=== PATIENT | female | born 1935 | race Caucasian/White ===

== ENCOUNTER 2018-10-31 10:02 | Inpatient (IN) ==
[2018-10-31] MEDS ORDERED: ACETAMINOPHEN 325 MG TABLET PO PRN (15:02)
[2018-10-31] MEDS ORDERED: GLUCAGON 1 MG VIAL IM PRN (15:02)
[2018-10-31] MEDS ORDERED: DEXTROSE 50% 25 GM/50 ML VIAL IV PRN (15:02)
[2018-10-31] MEDS ORDERED: ONDANSETRON 4 MG/2 ML VIAL IV PRN (15:02)
[2018-10-31] MEDS: SODIUM CHLORIDE 0.9% 1,000 ML IV SCH (15:28)
[2018-10-31 15:45] LABS: Basophils % 0.3 % (0.0-0.8); Eosinophils # 0.1 10*3/uL (0.0-0.87); Eosinophils % 3.6 % (0.00-10.9); Hematocrit 36.6 VOL% (35.7-47.0); Hemoglobin 11.3 GM/DL (12.0-16.0); Immature Granulocytes % 6.8 %; Immature Granulocytes Absolute 0.21 #; Lymphocytes # 1.3 10*3/uL (1.4-4.0); Lymphocytes % 43.6 % (21.3-54.2); Mean Corpuscular HGB Conc 30.9 GM/DL (32-36); Mean Corpuscular Volume 98.1 FL (87-102); Mean Platelet Volume 9.8 FL (9.6-12.0); Monocytes % 8.1 % (1.7-12.7); Neutrophils % 37.6 % (38.7-73.9); Platelet Count 175 T/CUMM (130-400); Red Blood Count 3.73 MC/CUMM (3.8-5.5); Red Cell Distribution Width 13.1 % (9.3-17.3); White Blood Count 3.1 T/CUMM (4-12)
[2018-10-31] MEDS ORDERED: CYCLOBENZAPRINE 10 MG TABLET PO PRN (15:53)
[2018-10-31 16:12] LABS: Albumin 3.6 G/DL (3.4-5.0); Bilirubin,Total 0.4 MG/DL (0.2-1.0); Calcium 9.1 MG/DL (8.5-10.1); Osmolality,Calculated 285.7 MOS/KG (273-304)
[2018-10-31] MEDS ORDERED: POTASSIUM CHLORIDE 20 MEQ TABLET PO PRN (16:14)
[2018-10-31 16:17] LABS: Risk Ratio 1.45; Thyroid Stimulating Hormone 3.48 uIU/ml (0.358-3.74); VLDL CHOLESTEROL 7.8 MG/DL
[2018-10-31 16:25] LABS: Eosinophils 1 % (0-10); Lymphocytes 47 % (20-55); Segmented Neutrophils 39 % (50-85); Total Cells Counted 100
[2018-10-31 16:26] LABS: Platelet Estimate Adequate
[2018-10-31] MEDS: INSULIN LISPRO 100 UNIT/ML SUBCUT SCH ×2 (16:38→22:43)
[2018-10-31 17:52] LABS: Apearance,Urine CLOUDY (Clear); Bacteria,Urine Moderate /HPF (Few); Bilirubin,Urine Negative (Negative); Blood, Urine Negative (Negative); Glucose,Urine (UA) Negative (Negative); Ketones,Urine Negative (Negative); Nitrite,Urine Negative (Negative); Protein,Urine Negative; RBC,Urine 6 /HPF (0-4); Squamous Epithelial Cell,Urine Occasional /HPF (0-10); Urine Color Amber (Yellow); Urine Specific Gravity 1.019 (1.001-1.035); Urine Urobilinogen < 2.0 EU/DL (0.2-1.0); WBC,Urine 44 /HPF (0-6)
[2018-10-31] MEDS: PANTOPRAZOLE 40 MG TABLET PO SCH (20:44)
[2018-10-31] MEDS: SIMVASTATIN 40 MG TABLET PO SCH (20:44)
[2018-10-31] MEDS: CLORAZEPATE 3.75 MG TABLET PO SCH (22:44)
[2018-10-31] MEDS: metFORMIN 500 MG TABLET PO SCH (22:44)
[2018-11-01] MEDS: SODIUM CHLORIDE 0.9% 1,000 ML IV SCH ×4 (00:21→23:22)
[2018-11-01 05:18] LABS: Basophils % 0.4 % (0.0-0.8); Eosinophils # 0.1 10*3/uL (0.0-0.87); Eosinophils % 4.7 % (0.00-10.9); Hematocrit 33.4 VOL% (35.7-47.0); Hemoglobin 10.7 GM/DL (12.0-16.0); Immature Granulocytes % 8.1 %; Immature Granulocytes Absolute 0.19 #; Lymphocytes # 1.2 10*3/uL (1.4-4.0); Lymphocytes % 50.4 % (21.3-54.2); Mean Platelet Volume 10.2 FL (9.6-12.0); Monocytes % 11.9 % (1.7-12.7); Neutrophils % 24.5 % (38.7-73.9); Platelet Count 153 T/CUMM (130-400); Red Blood Count 3.48 MC/CUMM (3.8-5.5); Red Cell Distribution Width 13.1 % (9.3-17.3); White Blood Count 2.4 T/CUMM (4-12)
[2018-11-01 05:41] LABS: Eosinophils 6 % (0-10); Hypochromasia 1+; Lymphocytes 47 % (20-55); Platelet Estimate Adequate; Segmented Neutrophils 38 % (50-85); Total Cells Counted 100
[2018-11-01 05:45] LABS: Albumin 2.9 G/DL (3.4-5.0); Bilirubin,Total 0.5 MG/DL (0.2-1.0); Calcium 8.6 MG/DL (8.5-10.1); Osmolality,Calculated 285.3 MOS/KG (273-304)
[2018-11-01] MEDS: INSULIN LISPRO 100 UNIT/ML SUBCUT SCH ×4 (08:10→21:39)
[2018-11-01] MEDS: MAGNESIUM GLUCONATE 500 MG TABLET PO SCH (08:35)
[2018-11-01] MEDS: metFORMIN 500 MG TABLET PO SCH ×2 (08:35→21:39)
[2018-11-01] MEDS: ATENOLOL 25 MG TABLET PO SCH (08:35)
[2018-11-01] MEDS: PARoxetine 20 MG TABLET PO SCH (08:36)
[2018-11-01] MEDS: MAGNESIUM CITRATE 300 ML BOTTLE PO SCH (08:36)
[2018-11-01] MEDS: LEVOTHYROXINE 75 MCG TABLET PO SCH (08:36)
[2018-11-01] MEDS: PANTOPRAZOLE 40 MG TABLET PO SCH ×2 (08:36→21:41)
[2018-11-01] MEDS: SIMVASTATIN 40 MG TABLET PO SCH (21:40)
[2018-11-01] MEDS: CLORAZEPATE 3.75 MG TABLET PO SCH (21:41)
[2018-11-02 05:46] LABS: Basophils % 0.4 % (0.0-0.8); Eosinophils # 0.1 10*3/uL (0.0-0.87); Hematocrit 35.7 VOL% (35.7-47.0); Hemoglobin 11.1 GM/DL (12.0-16.0); Immature Granulocytes % 2.4 %; Immature Granulocytes Absolute 0.06 #; Lymphocytes # 1.1 10*3/uL (1.4-4.0); Mean Corpuscular HGB Conc 31.1 GM/DL (32-36); Mean Corpuscular Volume 96.7 FL (87-102); Mean Platelet Volume 9.8 FL (9.6-12.0); Neutrophils % 38.2 % (38.7-73.9); Platelet Count 156 T/CUMM (130-400); Red Blood Count 3.69 MC/CUMM (3.8-5.5); White Blood Count 2.5 T/CUMM (4-12)
[2018-11-02 06:02] LABS: Albumin 3.5 G/DL (3.4-5.0); Bilirubin,Total 0.8 MG/DL (0.2-1.0); Calcium 8.5 MG/DL (8.5-10.1); Osmolality,Calculated 283.5 MOS/KG (273-304); Total Protein 6.8 G/DL (6.4-8.3)
[2018-11-02 06:10] LABS: Eosinophils 5 % (0-10); Hypochromasia 1+; Lymphocytes 43 % (20-55); Platelet Estimate Adequate; Segmented Neutrophils 43 % (50-85); Total Cells Counted 100
[2018-11-02] MEDS: INSULIN LISPRO 100 UNIT/ML SUBCUT SCH ×4 (07:30→21:34)
[2018-11-02] MEDS ORDERED: LACTATED RINGERS 1,000 ML IV SCH (08:00)
[2018-11-02] MEDS ORDERED: PROPOFOL 200 MG/20 ML VIAL IV ONE (09:00)
[2018-11-02] MEDS ORDERED: LIDOCAINE 2% 5 ML VIAL ONE (09:00)
[2018-11-02] MEDS ORDERED: DEXTROSE 50% 25 GM/50 ML VIAL IV PRN (13:16)
[2018-11-02] MEDS ORDERED: GLUCAGON 1 MG VIAL IM PRN (13:16)
[2018-11-02] MEDS: SODIUM CHLORIDE 0.9% 1,000 ML IV SCH ×2 (14:35→16:55)
[2018-11-02] MEDS: ATENOLOL 25 MG TABLET PO SCH (14:36)
[2018-11-02] MEDS: metFORMIN 500 MG TABLET PO SCH ×2 (14:36→21:34)
[2018-11-02] MEDS: AMOXICILLIN 500 MG CAPSULE PO SCH ×3 (14:36→21:34)
[2018-11-02] MEDS: MAGNESIUM CITRATE 300 ML BOTTLE PO SCH (14:36)
[2018-11-02] MEDS: PANTOPRAZOLE 40 MG TABLET PO SCH ×2 (14:37→21:34)
[2018-11-02] MEDS: PARoxetine 20 MG TABLET PO SCH (14:37)
[2018-11-02] MEDS: LEVOTHYROXINE 75 MCG TABLET PO SCH (14:41)
[2018-11-02] MEDS: MAGNESIUM GLUCONATE 500 MG TABLET PO SCH (14:41)
[2018-11-02] MEDS ORDERED: ENOXAPARIN 40 MG/0.4 ML SYRINGE SUBCUT ONE (16:19)
[2018-11-02] MEDS: SIMVASTATIN 40 MG TABLET PO SCH (21:34)
[2018-11-02] MEDS: CLORAZEPATE 3.75 MG TABLET PO SCH (21:34)
[2018-11-03] MEDS: SODIUM CHLORIDE 0.9% 1,000 ML IV SCH (01:10)
[2018-11-03 05:55] LABS: Basophils % 0.4 % (0.0-0.8); Eosinophils # 0.1 10*3/uL (0.0-0.87); Eosinophils % 4.6 % (0.00-10.9); Hematocrit 40.4 VOL% (35.7-47.0); Hemoglobin 12.7 GM/DL (12.0-16.0); Immature Granulocytes % 7.1 %; Lymphocytes # 1.4 10*3/uL (1.4-4.0); Lymphocytes % 48.9 % (21.3-54.2); Mean Corpuscular HGB Conc 31.4 GM/DL (32-36); Mean Platelet Volume 10.3 FL (9.6-12.0); Monocytes % 12.5 % (1.7-12.7); Neutrophils % 26.5 % (38.7-73.9); Platelet Count 180 T/CUMM (130-400); Red Blood Count 4.21 MC/CUMM (3.8-5.5); White Blood Count 2.8 T/CUMM (4-12)
[2018-11-03 06:18] LABS: Eosinophils 1 % (0-10); Hypochromasia 1+; Lymphocytes 56 % (20-55); Platelet Estimate Adequate; Segmented Neutrophils 36 % (50-85); Total Cells Counted 100
[2018-11-03 06:57] LABS: Albumin 3.9 G/DL (3.4-5.0); Bilirubin,Total 0.5 MG/DL (0.2-1.0); Osmolality,Calculated 283.4 MOS/KG (273-304); Total Protein 7.8 G/DL (6.4-8.3)
[2018-11-03 08:00] VITALS: BP 122/69
[2018-11-03] MEDS: PANTOPRAZOLE 40 MG TABLET PO SCH (08:49)
[2018-11-03] MEDS: LEVOTHYROXINE 75 MCG TABLET PO SCH (08:49)
[2018-11-03] MEDS: MAGNESIUM GLUCONATE 500 MG TABLET PO SCH (08:50)
[2018-11-03] MEDS: AMOXICILLIN 500 MG CAPSULE PO SCH (08:50)
[2018-11-03] MEDS: INSULIN LISPRO 100 UNIT/ML SUBCUT SCH (08:51)
[2018-11-03] MEDS: ATENOLOL 25 MG TABLET PO SCH (08:51)
[2018-11-03] MEDS: metFORMIN 500 MG TABLET PO SCH (08:51)
[2018-11-03] MEDS: PARoxetine 20 MG TABLET PO SCH (08:51)
[2018-11-03] MEDS: MAGNESIUM CITRATE 300 ML BOTTLE PO SCH (08:52)
== END 2018-11-03 11:53 | disposition home or self-care (01) | DRG 392 ==
LOC: N.5E 13:02 → SUATTDRO 13:02
PROVIDERS: ADMIT Internal Medicine; ATTEND Internal Medicine

== ENCOUNTER 2020-10-26 20:33 | Observation (INO) ==
[2020-10-26] MEDS ORDERED: ONDANSETRON 4 MG/2 ML VIAL IV STA (21:54)
[2020-10-26] MEDS ORDERED: PANTOPRAZOLE 40 MG VIAL IV STA (21:54)
[2020-10-26] MEDS ORDERED: SODIUM CHLORIDE 0.9% 500 ML IV STA (21:54)
[2020-10-26 22:38] LABS: Eosinophils % 0.7 % (0.00-10.9); Hematocrit 37.1 VOL% (35.7-47.0); Hemoglobin 12.1 GM/DL (12.0-16.0); Immature Granulocytes % 6.6 %; Immature Granulocytes Absolute 0.28 #; Lymphocytes % 22.4 % (21.3-54.2); Mean Corpuscular HGB Conc 32.6 GM/DL (32-36); Mean Corpuscular Volume 94.4 FL (87-102); Mean Platelet Volume 10.7 FL (9.6-12.0); Monocytes % 8.5 % (1.7-12.7); Neutrophils % 61.8 % (38.7-73.9); Platelet Count 150 T/CUMM (130-400); Red Blood Count 3.93 MC/CUMM (3.8-5.5); White Blood Count 4.3 T/CUMM (4-12)
[2020-10-26 23:03] LABS: Albumin 3.8 G/DL (3.4-5.0); Bilirubin,Total 0.6 MG/DL (0.2-1.0); Calcium 8.8 MG/DL (8.5-10.1); Osmolality,Calculated 286.1 MOS/KG (273-304); Potassium 4.4 MMOL/L (3.5-5.1); Total Protein 7.5 G/DL (6.4-8.2)
[2020-10-26 23:11] LABS: Eosinophils 1 % (0-10); Lymphocytes 19 % (20-55); Segmented Neutrophils 74 % (50-85); Total Cells Counted 100
[2020-10-26 23:12] LABS: Anisocytosis Slight; Microcytosis 1+; Platelet Estimate Normal
[2020-10-26 23:13] LABS: Hypochromasia 1+
[2020-10-26 23:14] LABS: Polychromasia Slight; Spherocytes Few
[2020-10-26 23:17] LABS: Bacteria,Urine Occasional /HPF (Few); Bilirubin,Urine Negative (Negative); Blood, Urine Negative (Negative); Glucose,Urine (UA) >=500 mg/dL (Negative); Ketones,Urine Negative (Negative); Nitrite,Urine Negative (Negative); Protein,Urine Negative; RBC,Urine 2 /HPF (0-4); Squamous Epithelial Cell,Urine Occasional /HPF (0-10); Urine Appearance CLEAR (Clear); Urine Color Colorless (Yellow); Urine Specific Gravity 1.008 (1.001-1.035); Urine Urobilinogen < 2.0 EU/DL (0.2-1.0)
[2020-10-26] MEDS ORDERED: INSULIN REGULAR 100 UNIT/ML SUBCUT STA (23:49)
[2020-10-26] MEDS ORDERED: MEROPENEM 500 MG in SODIUM CHLORIDE 0.9% 100 ML IV ONE (23:49)
[2020-10-27] MEDS ORDERED: diphenhydrAMINE CAP 25 MG CAPSULE PO PRN (01:58)
[2020-10-27] MEDS ORDERED: DEXTROSE 50% 25 GM/50 ML VIAL IV PRN (01:58)
[2020-10-27] MEDS ORDERED: ONDANSETRON 4 MG/2 ML VIAL IV PRN (01:58)
[2020-10-27] MEDS ORDERED: ALUMINUM/MAGNES/SIMETH MAX STR 30 ML UDCUP PO PRN (01:58)
[2020-10-27] MEDS ORDERED: ACETAMINOPHEN 325 MG TABLET PO PRN (01:58)
[2020-10-27] MEDS ORDERED: GLUCAGON 1 MG VIAL IM PRN (01:58)
[2020-10-27] MEDS ORDERED: SODIUM CHLORIDE 0.9% 1,000 ML IV SCH (02:00)
[2020-10-27 04:53] LABS: Calcium 8.9 MG/DL (8.5-10.1); Potassium 3.4 MMOL/L (3.5-5.1)
[2020-10-27] MEDS: INSULIN REGULAR 100 UNIT/ML SUBCUT SCH ×2 (08:00→12:15)
[2020-10-27] MEDS ORDERED: MEROPENEM 500 MG in SODIUM CHLORIDE 0.9% 100 ML IV SCH (08:00)
[2020-10-27] MEDS ORDERED: PANTOPRAZOLE 40 MG VIAL IV SCH (09:00)
[2020-10-27] MEDS ORDERED: POTASSIUM CHLORIDE 20 MEQ TABLET PO ONE (09:19)
[2020-10-27] MEDS ORDERED: cefTRIAXone 1,000 MG in SODIUM CHLORIDE 0.9% 100 ML IV SCH (09:30)
[2020-10-27] MEDS ORDERED: traMADol 50 MG TABLET PO PRN (10:05)
[2020-10-27] MEDS ORDERED: CLORAZEPATE 3.75 MG TABLET PO SCH (10:30)
[2020-10-27] MEDS ORDERED: LEVOTHYROXINE 100 MCG TABLET PO SCH (10:30)
[2020-10-27] MEDS ORDERED: atenoloL 25 MG TABLET PO SCH (10:30)
[2020-10-27] MEDS ORDERED: ASPIRIN EC 81 MG TABLET PO SCH (10:30)
[2020-10-27 18:36] VITALS: BP 128/58
[2020-10-27] MEDS ORDERED: CYCLOBENZAPRINE 10 MG TABLET PO SCH (21:00)
[2020-10-27] MEDS ORDERED: NON-FORMULARY MEDICATION (Magnesium 250 mg Tablet) PO SCH (21:00)
[2020-10-27] MEDS ORDERED: SIMVASTATIN 10 MG TABLET PO SCH (21:00)
[2020-10-28] MEDS ORDERED: PARoxetine 20 MG TABLET PO SCH (09:00)
[2020-10-28] MEDS ORDERED: NIFEDIPINE 30 MG PO SCH (09:00)
[2020-10-28] MEDS ORDERED: PANTOPRAZOLE 40 MG TABLET PO SCH (09:00)
== END 2020-10-27 16:15 | disposition home or self-care (01) ==
LOC: EDBD → EDUNIT# → N.EDINP 20:33 → N.ED 20:33 → N.EDINP 10-27 16:24
PROVIDERS: ADMIT Internal Medicine; ATTEND Internal Medicine

== ENCOUNTER 2021-12-09 10:58 | Inpatient (IN) ==
[2021-12-09] MEDS ORDERED: SODIUM CHLORIDE 0.9% 1,000 ML IV STA (11:31)
[2021-12-09 11:37] LABS: Basophils % 0.2 % (0.0-0.8); Eosinophils % 0.2 % (0.00-10.9); Hematocrit 37.6 VOL% (35.7-47.0); Hemoglobin 12.7 GM/DL (12.0-16.0); Immature Granulocytes % 2.4 %; Immature Granulocytes Absolute 0.31 #; Lymphocytes # 1.3 10*3/uL (1.4-4.0); Lymphocytes % 10.1 % (21.3-54.2); Mean Corpuscular HGB Conc 33.8 GM/DL (32-36); Mean Corpuscular Volume 92.2 FL (87-102); Mean Platelet Volume 10.3 FL (9.6-12.0); Monocytes # 1.3 10*3/uL (0.11-0.8); Monocytes % 9.9 % (1.7-12.7); Neutrophils % 77.2 % (38.7-73.9); Platelet Count 285 T/CUMM (130-400); Red Blood Count 4.08 MC/CUMM (3.8-5.5); Red Cell Distribution Width 13.2 % (9.3-17.3); White Blood Count 13.1 T/CUMM (4-12)
[2021-12-09 11:54] LABS: Albumin 3.5 G/DL (3.4-5.0); Bilirubin,Total 0.6 MG/DL (0.20-1.00); Calcium 9.3 MG/DL (8.5-10.1); Osmolality,Calculated 284.5 MOS/KG (273-304); Potassium 4.7 MMOL/L (3.5-5.1); Total Protein 7.2 G/DL (6.4-8.2)
[2021-12-09 13:13] LABS: Bacteria,Urine Few /HPF (Few); RBC,Urine 24 /HPF (0-4)
[2021-12-09 13:14] LABS: Protein,Urine 100 mg/dL (Negative); Urine Appearance Cloudy (Clear); Urine Color Light Yellow (Yellow)
[2021-12-09 13:15] LABS: Bilirubin,Urine Negative (Negative); Blood, Urine Moderate mg/dL (Negative); Glucose,Urine (UA) 100 mg/dL (Negative); Ketones,Urine Negative (Negative); Nitrite,Urine Negative (Negative); Urine Urobilinogen 0.2 eU/dL (<2.0)
[2021-12-09] MEDS ORDERED: cefTRIAXone 1,000 MG in SODIUM CHLORIDE 0.9% 100 ML IV STA (13:20)
[2021-12-09] MEDS ORDERED: GLUCAGON 1 MG VIAL IM PRN (13:32)
[2021-12-09] MEDS ORDERED: ONDANSETRON 4 MG/2 ML VIAL IV PRN (13:32)
[2021-12-09] MEDS ORDERED: DEXTROSE 10% 250 ML BAG IV PRN (13:32)
[2021-12-09] MEDS ORDERED: CYCLOBENZAPRINE 10 MG TABLET PO PRN (13:35)
[2021-12-09] MEDS ORDERED: traMADol 50 MG TABLET PO PRN (13:35)
[2021-12-09] MEDS: INSULIN LISPRO 100 UNIT/ML SUBCUT SCH ×2 (17:29→21:35)
[2021-12-09] MEDS: SODIUM CHLORIDE 0.9% 1,000 ML IV SCH (17:49)
[2021-12-09] MEDS: ACETAMINOPHEN 325 MG TABLET PO PRN (21:34)
[2021-12-09] MEDS: atenoloL 50 MG TABLET PO SCH (21:35)
[2021-12-09] MEDS: ENOXAPARIN 40 MG/0.4 ML SYRINGE SUBCUT SCH (21:35)
[2021-12-09] MEDS: FERROUS SULFATE 325 MG TABLET PO SCH (21:35)
[2021-12-10] MEDS: SODIUM CHLORIDE 0.9% 1,000 ML IV SCH ×3 (04:14→21:22)
[2021-12-10 04:55] LABS: Basophils % 0.1 % (0.0-0.8); Eosinophils # 0.1 10*3/uL (0.0-0.87); Eosinophils % 0.6 % (0.00-10.9); Hematocrit 33.2 VOL% (35.7-47.0); Immature Granulocytes % 2.1 %; Immature Granulocytes Absolute 0.16 #; Lymphocytes # 1.2 10*3/uL (1.4-4.0); Mean Corpuscular HGB Conc 33.1 GM/DL (32-36); Mean Corpuscular Volume 94.9 FL (87-102); Mean Platelet Volume 10.3 FL (9.6-12.0); Monocytes # 0.9 10*3/uL (0.11-0.8); Monocytes % 11.3 % (1.7-12.7); Neutrophils % 69.9 % (38.7-73.9); Platelet Count 229 T/CUMM (130-400); Red Cell Distribution Width 13.2 % (9.3-17.3); White Blood Count 7.8 T/CUMM (4-12)
[2021-12-10 05:16] LABS: Calcium 8.5 MG/DL (8.5-10.1); Osmolality,Calculated 284.1 MOS/KG (273-304); Potassium 3.8 MMOL/L (3.5-5.1)
[2021-12-10] MEDS ORDERED: PANTOPRAZOLE 40 MG TABLET PO SCH (09:00)
[2021-12-10] MEDS ORDERED: INSULIN GLARGINE 100 UNIT/ML SUBCUT SCH (09:00)
[2021-12-10] MEDS: INSULIN GLARGINE 100 UNIT/ML SUBCUT SCH (09:05)
[2021-12-10] MEDS: INSULIN LISPRO 100 UNIT/ML SUBCUT SCH ×4 (09:06→21:34)
[2021-12-10] MEDS: CHOLECALCIFEROL 400 UNIT TABLET PO SCH (09:09)
[2021-12-10] MEDS: PANTOPRAZOLE 40 MG TABLET PO SCH (09:09)
[2021-12-10] MEDS: LEVOTHYROXINE 125 MCG TABLET PO SCH (09:09)
[2021-12-10] MEDS: MAGNESIUM OXIDE 400 MG TABLET PO SCH (09:09)
[2021-12-10] MEDS: PARoxetine 20 MG TABLET PO SCH (09:09)
[2021-12-10] MEDS: FERROUS SULFATE 325 MG TABLET PO SCH ×2 (09:09→21:30)
[2021-12-10] MEDS: ASPIRIN EC 325 MG TABLET PO SCH (09:09)
[2021-12-10] MEDS: ASCORBIC ACID 500 MG TABLET PO SCH (09:09)
[2021-12-10] MEDS: cefTRIAXone 2,000 MG in SODIUM CHLORIDE 0.9% 100 ML IV SCH (09:14)
[2021-12-10] MEDS ORDERED: cefTRIAXone 1,000 MG in SODIUM CHLORIDE 0.9% 100 ML IV SCH (14:00)
[2021-12-10] MEDS: ACETAMINOPHEN 325 MG TABLET PO PRN (19:30)
[2021-12-10] MEDS: ENOXAPARIN 40 MG/0.4 ML SYRINGE SUBCUT SCH (21:28)
[2021-12-10] MEDS: atenoloL 50 MG TABLET PO SCH (21:30)
[2021-12-11] MEDS: INSULIN LISPRO 100 UNIT/ML SUBCUT SCH ×2 (07:56→12:40)
[2021-12-11 08:36] LABS: Basophils % 0.2 % (0.0-0.8); Eosinophils # 0.2 10*3/uL (0.0-0.87); Eosinophils % 3.4 % (0.00-10.9); Hematocrit 37.7 VOL% (35.7-47.0); Hemoglobin 12.4 GM/DL (12.0-16.0); Immature Granulocytes % 1.4 %; Immature Granulocytes Absolute 0.06 #; Lymphocytes # 1.5 10*3/uL (1.4-4.0); Lymphocytes % 33.6 % (21.3-54.2); Mean Corpuscular HGB Conc 32.9 GM/DL (32-36); Mean Corpuscular Volume 94.5 FL (87-102); Monocytes # 0.5 10*3/uL (0.11-0.8); Monocytes % 11.6 % (1.7-12.7); Neutrophils % 49.8 % (38.7-73.9); Platelet Count 234 T/CUMM (130-400); Red Blood Count 3.99 MC/CUMM (3.8-5.5); Red Cell Distribution Width 13.2 % (9.3-17.3)
[2021-12-11] MEDS: cefTRIAXone 2,000 MG in SODIUM CHLORIDE 0.9% 100 ML IV SCH (08:36)
[2021-12-11 08:37] LABS: White Blood Count 4.4 T/CUMM (4-12)
[2021-12-11] MEDS: MAGNESIUM OXIDE 400 MG TABLET PO SCH (08:37)
[2021-12-11] MEDS: LEVOTHYROXINE 125 MCG TABLET PO SCH (08:37)
[2021-12-11] MEDS: PANTOPRAZOLE 40 MG TABLET PO SCH (08:37)
[2021-12-11] MEDS: ASPIRIN EC 325 MG TABLET PO SCH (08:37)
[2021-12-11] MEDS: CHOLECALCIFEROL 400 UNIT TABLET PO SCH (08:37)
[2021-12-11] MEDS: PARoxetine 20 MG TABLET PO SCH (08:37)
[2021-12-11] MEDS: FERROUS SULFATE 325 MG TABLET PO SCH (08:37)
[2021-12-11] MEDS: ASCORBIC ACID 500 MG TABLET PO SCH (08:37)
[2021-12-11] MEDS: INSULIN GLARGINE 100 UNIT/ML SUBCUT SCH (08:38)
[2021-12-11 09:01] LABS: Calcium 8.6 MG/DL (8.5-10.1); Osmolality,Calculated 285.8 MOS/KG (273-304); Potassium 3.7 MMOL/L (3.5-5.1)
[2021-12-11 11:49] VITALS: BP 154/71
[2021-12-11] MEDS: SODIUM CHLORIDE 0.9% 1,000 ML IV SCH (12:40)
== END 2021-12-11 12:41 | disposition home or self-care (01) | DRG 690 ==
LOC: EDBD → EDUNIT# → N.ED 10:58 → N.EDINP 13:32 → SUATTDRO 13:32 → N.5E 15:24
PROVIDERS: ADMIT Internal Medicine; ATTEND Emergency Medicine